=== PATIENT | female | born 1950 | race Caucasian/White ===

== ENCOUNTER 2020-12-22 16:39 | Inpatient (IN) | payer OTHER, SELFPAY ==
[~2020-12-22] VITALS: Ht 147.3 cm; Wt 45.5 kg
[~2020-12-22 16:39] MED LIST: ACEASPCAF PO; ALBU3IS INH; ALBU90OI INH; ALEN70 PO; Entocort EC 3 mg3 MG PO; FLUSAL2505 INH; FLUT1DIS8 INH; GABA300 PO; LEVO750 PO; LEVSOD50 PO; LOVA40; LOVA40 PO; MIRT15 PO; NICO14TP; OMEP20ER PO; POTCHL10ER PO; PRED10 PO; TRAZ50 PO; Ventolin Soln3 ML INH
[2020-12-22 16:56] LABS: Base Excess Venous 0.4 mmol/L; Bicarbonate Venous 23.6 mmol/L (24.0-30.0); PCO2 Venous 40.1 mmHg (38-42); PO2 Venous 31.6 mmHg (38-42); pH Blood Venous 7.41 (7.34-7.37)
[2020-12-22 17:01] LABS: BASOPHILS ABSOLUTE AUTO 0.05 K/mm3 (0.00-0.23); BASOPHILS PERCENT AUTO 1 % (0-2); EOSINOPHILS PERCENT AUTO 0 % (0-6); Hemoglobin 16.2 g/dL (11.5-16.0); IMMATURE GRAN ABSOLUTE AUTO 0.06 K/mm3 (0.00-0.10); IMMATURE GRAN PERCENT AUTO 1 % (0-1); LYMPHOCYTES ABSOLUTE AUTO 1.27 K/mm3 (0.84-5.20); LYMPHOCYTES PERCENT AUTO 15 % (21-46); MONOCYTES ABSOLUTE AUTO 0.66 K/mm3 (0.16-1.47); MONOCYTES PERCENT AUTO 8 % (4-13); Mean Corpuscular HGB 29.6 pg (26.0-34.0); Mean Corpuscular HGB Conc 31.8 g/dL (31.5-36.5); Mean Corpuscular Volume 93 fL (80-100); Mean Platelet Volume 11.3 fL (9.1-12.4); NEUTROPHILS ABSOLUTE AUTO 6.54 K/mm3 (1.96-9.15); NEUTROPHILS PERCENT AUTO 76 % (41-73); Platelet Count 245 K/mm3 (150-400); RDW Coefficient Variation 13.7 % (11.7-14.2); RDW Standard Deviation 47.1 fL (35.1-46.3); Red Blood Cell Count 5.47 M/mm3 (3.80-5.20); White Blood Cell Count 8.58 K/mm3 (4.00-11.30)
[2020-12-22 17:21] LABS: Alanine Aminotransfer (ALT/SGP 27 U/L (12-78); Albumin, Blood 3.5 g/dL (3.4-5.0); Albumin/Globulin Ratio 0.9 (0.8-1.8); Alk Phos 137 U/L (50-136); Anion Gap 9 mmol/L (6-16); Aspartate Aminotrans (AST/SGOT 22 U/L (12-37); Bilirubin, Total 0.7 mg/dL (0.1-1.0); Blood Urea Nitrogen 21 mg/dL (8-24); Bun/Creatinine Ratio 40.3 (12.0-20.0); CO2, Blood 24 mmol/L (21-32); Calcium, Blood 9.7 mg/dL (8.5-10.1); Chloride, Blood 107 mmol/L (98-108); Creatinine, Blood 0.52 mg/dL (0.40-1.00); Globulin, Blood 3.9 g/dL (2.2-4.0); Glomerular Filtration Rate >60 (60-); Glucose, Blood 104 mg/dL (70-99); Sodium, Blood 140 mmol/L (136-145); Total Protein, Blood 7.4 g/dL (6.4-8.2); Troponin I <0.015 ng/mL (0.000-0.040)
[2020-12-22] MEDS ORDERED: PROZAC20 M3 PO (17:26)
[2020-12-22] MEDS ORDERED: SYNTHROID75 MCG PO (17:27)
[2020-12-22] MEDS ORDERED: Lovastatin10 MG PO (17:28)
[2020-12-22 18:23] LABS: Influenza A, PCR NEGATIVE (NEGATIVE); Influenza B, PCR NEGATIVE (NEGATIVE); Resp Syncytial Virus, PCR NEGATIVE (NEGATIVE); SARS-Cov-2 (COVID-19) PCR, MMC NEGATIVE (NEGATIVE)
[2020-12-22 23:24] LABS: CPK Creatine Kinase 75 U/L (26-193); Troponin I <0.015 ng/mL (0.000-0.040)
--- NOTE | 2020-12-23 06:26 | NUR ---
shift summary pt admitted. alert and oriented - able to make needs known. sats >90% on bipap - desats rapidly when bipap taken off. tele nsr. no c/o chest pain. c/o headache x1 - see emar. very sob - prefers to use bedpan. lasix for diuresing. uop 700ml. no bm. no pain elsewhere. call light within reach, bed in lowest position. will continue to monitor.
[2020-12-23 07:12] LABS: BASOPHILS ABSOLUTE AUTO 0.01 K/mm3 (0.00-0.23); BASOPHILS PERCENT AUTO 0 % (0-2); EOSINOPHILS PERCENT AUTO 0 % (0-6); Hematocrit 46.8 % (33.0-51.0); Hemoglobin 14.8 g/dL (11.5-16.0); IMMATURE GRAN ABSOLUTE AUTO 0.01 K/mm3 (0.00-0.10); IMMATURE GRAN PERCENT AUTO 0 % (0-1); LYMPHOCYTES ABSOLUTE AUTO 0.52 K/mm3 (0.84-5.20); LYMPHOCYTES PERCENT AUTO 11 % (21-46); MONOCYTES ABSOLUTE AUTO 0.29 K/mm3 (0.16-1.47); MONOCYTES PERCENT AUTO 6 % (4-13); Mean Corpuscular HGB 29.8 pg (26.0-34.0); Mean Corpuscular HGB Conc 31.6 g/dL (31.5-36.5); Mean Corpuscular Volume 94 fL (80-100); Mean Platelet Volume 11.6 fL (9.1-12.4); NEUTROPHILS ABSOLUTE AUTO 4.12 K/mm3 (1.96-9.15); NEUTROPHILS PERCENT AUTO 83 % (41-73); Platelet Count 218 K/mm3 (150-400); RDW Coefficient Variation 13.7 % (11.7-14.2); RDW Standard Deviation 47.6 fL (35.1-46.3); Red Blood Cell Count 4.96 M/mm3 (3.80-5.20); White Blood Cell Count 4.95 K/mm3 (4.00-11.30)
[2020-12-23 07:33] LABS: Alanine Aminotransfer (ALT/SGP 24 U/L (12-78); Albumin/Globulin Ratio 0.8 (0.8-1.8); Alk Phos 121 U/L (50-136); Anion Gap 8 mmol/L (6-16); Aspartate Aminotrans (AST/SGOT 23 U/L (12-37); Bilirubin, Total 0.5 mg/dL (0.1-1.0); Blood Urea Nitrogen 21 mg/dL (8-24); Bun/Creatinine Ratio 31.4 (12.0-20.0); CO2, Blood 27 mmol/L (21-32); CPK Creatine Kinase 61 U/L (26-193); Calcium, Blood 9.1 mg/dL (8.5-10.1); Chloride, Blood 106 mmol/L (98-108); Creatinine, Blood 0.67 mg/dL (0.40-1.00); Globulin, Blood 3.6 g/dL (2.2-4.0); Glomerular Filtration Rate >60 (60-); Glucose, Blood 109 mg/dL (70-99); Potassium, Blood 4.4 mmol/L (3.5-5.5); Sodium, Blood 141 mmol/L (136-145); Total Protein, Blood 6.6 g/dL (6.4-8.2); Troponin I <0.015 ng/mL (0.000-0.040)
--- NOTE | 2020-12-23 15:33 | NUR ---
echocardiogram complete
[2020-12-23] MEDS ORDERED: HYOS.125 PO (16:03)
[2020-12-23] MEDS ORDERED: LORA10ER PO (16:04)
[2020-12-23] MEDS ORDERED: PREG100 PO (16:05)
[2020-12-23] MEDS ORDERED: PROBIOTIC PO (16:08)
--- NOTE | 2020-12-23 20:11 | NUR ---
SHIFT SUMMARY PT A&Ox4; CALM AND COOPERATIVE CARE. PT RESTING IN BED DURING SHIFT. REPOSITIONED FOR COMFORT. PT REPORT HEADACHE THIS AM, TYLENOL GIVEN WITH NO EFFECT; NOTIFIED DR BLOOM; NEW ORDERS FOR FIORCET, ADMINISTERED WITH POSITIVE RESULTS. PT SOB WITH EXERTION; ON BIPAP 10/5 AT 50-70% FIO2 T/O SHIFT. ATTEMPTED BREAKS FROM BIPAP T/O SHIFT, PT DOES NOT TOLERATE WELL, DESATURATES QUICKLY; BIPAP REPLACED FOR RESCUE. PT DENIES CHEST PAIN, NAUSEA AND DIZZINESS. PT TRANSITIONED TO FULL LIQUID DIET. VSS. NO OTHER ACUTE CHAGNES NOTED. REPORT GIVEN TO ONCOMING RN.
[2020-12-24 04:05] LABS: Base Excess Venous 4.4 mmol/L; Bicarbonate Venous 27.2 mmol/L (24.0-30.0); PCO2 Venous 47.1 mmHg (38-42); PO2 Venous 48.3 mmHg (38-42)
[2020-12-24 04:32] LABS: Anion Gap 7 mmol/L (6-16); Blood Urea Nitrogen 22 mg/dL (8-24); Bun/Creatinine Ratio 40.1 (12.0-20.0); CO2, Blood 28 mmol/L (21-32); Calcium, Blood 8.5 mg/dL (8.5-10.1); Chloride, Blood 107 mmol/L (98-108); Creatinine, Blood 0.55 mg/dL (0.40-1.00); Glomerular Filtration Rate >60 (60-); Glucose, Blood 83 mg/dL (70-99); Potassium, Blood 3.3 mmol/L (3.5-5.5); Sodium, Blood 142 mmol/L (136-145)
--- NOTE | 2020-12-24 05:53 | NUR ---
SHIFT SUMMARY PT RESTED WELL THROUGH EVENING. ALERT AND ORIENTED - ABLE TO MAKE NEEDS KNOWN. TELE NSR. SATS >90% ON BIPAP. PT UNABLE TO MAINTAIN SATS WITHOUT BIPAP. ECHO RESULTED - SEE RESULTS. PT ON FULL LIQUIDS AND DOES WELL FOR QUIT PERIODS OFF BIPAP. VOIDING TO BEDPAN, NO BM. NO C/O PAIN. VSS. CALL LIGHT WITHIN REACH, BED IN LOWEST POSITION. WILL CONTINUE TO MONITOR.
--- NOTE | 2020-12-24 13:32 | NUR ---
PT AGREEABLE TO THIS STUDENT PROVIDING CARE.
[2020-12-24 13:33] LABS: Source, Urine Catheter
[2020-12-24 13:52] LABS: Appearance, Urine Clear (Clear); Bilirubin, Urine Neg (Neg); Blood, Urine Neg (Neg); Color, Urine Yellow (P-Yellow); Glucose Qualitative, Urine Neg (Neg); Ketones, Urine Neg (Neg); Leukocyte Esterase, Urine Neg (Neg); Nitrite, Urine Neg (Neg); Protein, Urine Neg (Neg); Urobilinogen, Urine NORM (Normal); pH, Urine 6.5 (5.0-8.0)
--- NOTE | 2020-12-24 19:08 | NUR ---
SHIFT SUMMARY PT A&Ox4; CALM AND COOPERATIVE WITH CARE. PT RESTING IN BED, REPOSITIONED TO Q2. PT DENIES PAIN, CHEST PAIN, NAUSEA AND DIZZINESS. PT SOB WITH EXERTION; PT ON BIPAP FOR MAJOIRTY OF SHIFT, PT TOLERATING SHORT BREAKS FOR MEALS ON 15L O2 VIA HIGHFLOW NC. PT STARTED ON COREG THIS AFTERNOON; BP SOFT THIS EVENING, NOTIFIED DR BLOOM; NEW ORDERS ENTERED. OTHER VSS. NO OTHER ACUTE CHANGES NOTED DURING SHIFT. REPORT GIVEN TO ONCOMING RN.
[2020-12-25 04:58] LABS: Anion Gap 2 mmol/L (6-16); Blood Urea Nitrogen 15 mg/dL (8-24); Bun/Creatinine Ratio 26.5 (12.0-20.0); CO2, Blood 37 mmol/L (21-32); Calcium, Blood 8.2 mg/dL (8.5-10.1); Chloride, Blood 102 mmol/L (98-108); Creatinine, Blood 0.57 mg/dL (0.40-1.00); Glomerular Filtration Rate >60 (60-); Glucose, Blood 94 mg/dL (70-99); Potassium, Blood 3.3 mmol/L (3.5-5.5); Sodium, Blood 141 mmol/L (136-145)
--- NOTE | 2020-12-25 05:25 | NUR ---
SHIFT SUMMARY PT RESTED WELL THROUGH NIGHT. ALERT AND ORIENTED - ABLE TO MAKE NEEDS KNOWN. TELE - NSR. PT WEARS BIPAP MAJORITY OF TIME, CAN ONLY TOLERATE BEING OFF BIPAP FOR ABOUT AN HOUR. PT TENDS TO DESAT TO HIGH 70'S-LOW 80'S WHEN OFF TOO LONG WEARING 15LNC HIFLO. CORTÉS PLACED TO HELP MEASURE ACCURATE I/O - SEE FLOWCHART FOR UOP. 2 BM'S. C/O HEADACHE FROM BIPAP - SEE EMAR. NO SKIN ISSUES. VSS. MORNING LABS SHOW POTASSIUM 3.3 - WILL NOTIFY MD. CALL LIGHT WITHIN REACH, BED IN LOWEST POSITION. WILL CONTINUE TO MONITOR.
--- NOTE | 2020-12-25 08:24 | NUR ---
pt laying in bed on bipap, asking to have it off, this was removed and she was placed on 15 liters high flow cannula, she is maintaining sats at 92%, denies complaints of pain, states she slept well last night, lungs are very dim t/o, resp even and unlabored at rest, no cough noted, hrr, running st per monitor, see strip, no edema noted, she reports she was swollen but has gone down, ppp+2, cap refill <3sec, vs stable, afebrile, iv site is clear and patent, btx4, abd flat soft nontender, martinez cath draining clear yellow urine, skin is c/w/d, frail, maew, activity intolerance due to resp. cecil, call light in reach.
--- NOTE | 2020-12-25 19:14 | NUR ---
PT HAS BEEN ABLE TO BE OFF BIPAP ON HIGH FLOW N/C AT 15LITERS FOR 1/2HR AT A TIME, DID DROP TO THE 70'S AT ONE TIME, RECOVERED WITH BIPAP. HAD A H/A THIS AFTERNOON. NO FURTHER CHANGES THIS SHIFT. CALL LIGHT IN REACH.
--- NOTE | 2020-12-26 04:40 | NUR ---
AUTOMOTIVE PARTS SALESPERSON SUMMARY THE PT REMAINED ON BIPAP SHE DESTURATED INTO THE LOW 80'S WHEN BIPAP WAS OFF. O2 SATS 90-93 ON BIPAP 65% O2. TELE NSR IN THE 90'S WITH PVC'S. PT DENIED ANY PAIN OR NAUSEA THIS SHIFT. WCTM
[2020-12-26 05:50] LABS: Anion Gap 5 mmol/L (6-16); Blood Urea Nitrogen 13 mg/dL (8-24); Bun/Creatinine Ratio 26.9 (12.0-20.0); CO2, Blood 34 mmol/L (21-32); Chloride, Blood 101 mmol/L (98-108); Creatinine, Blood 0.48 mg/dL (0.40-1.00); Glomerular Filtration Rate >60 (60-); Glucose, Blood 89 mg/dL (70-99); Potassium, Blood 3.2 mmol/L (3.5-5.5); Sodium, Blood 140 mmol/L (136-145)
--- NOTE | 2020-12-26 08:00 | NUR ---
pt laying in bed with n/c in place at 15 liters, taking a break from bipap, sats are above 90%, states she slept well last night, denies pain, lungs are very dim t/o, has occ nonproductive cough, states she is feeling ok, hrr, tele in place running sr with pvc's, no to trace edema noted, ppp+1, cap refill <3sec, vs stable, afebrile, iv site is clear and patent, btx4, abd flat soft nontender, voids without diff, skin c/w/d, frail, maew, very weak, activity intolerance due to breathing, cecil, call light in reach.
--- NOTE | 2020-12-26 12:21 | NUR ---
pt off bipap for lunch, Dr. Dyer was in to see her, labs ordered, no further changes. call light in reach.
--- NOTE | 2020-12-26 18:54 | NUR ---
pt watching tv, on n/c, doing well, states her bottom is hurting from sitting on it too long. will check it, ate better this evening. call light in reach.
--- NOTE | 2020-12-26 19:25 | NUR ---
ASSUMED CARE RECEIVED BEDSIDE REPORT FROM DANK WEEMS RN; PT A&O X 4; DENIES CHEST PAIN; VSS; O2 SATS >93 ON BIPAP; RT TITRATING; CURRENTLY WATCHING TV W/ NO DISTRESS NOTED; CALL LIGHT IN REACH; BED IN LOWEST POSITION.
--- NOTE | 2020-12-27 04:48 | NUR ---
SHIFT SUMMARY PT A&O X 4; VSS; DENIES CHEST PAIN; SR - ST NOTED ON TELE W/ HR 90-110; O2 SATS >93 ON 15L HIGH FLOW OR BIPAP 10/5 60% FIO2 TITRATED PER RT; CORTÉS PATENT & DRAINING YELLOW; EGG CRATE PLACED ON MATTRESS FOR COMFORT AND PILLOWS UNDER HIPS TO RELIEVE PRESSURE; TYLENOL ADMINISTEERED FOR HEADACHE; NO ACUTE CHANGES THIS SHIFT; CALL LIGHT IN REACH; BED IN LOWEST POSITION; WILL CONTINUE TO MONITOR CLOSELY UNTIL HAND OFF TO DAY SHIFT RN.
[2020-12-27 05:02] LABS: Anion Gap 6 mmol/L (6-16); Blood Urea Nitrogen 15 mg/dL (8-24); Bun/Creatinine Ratio 32.9 (12.0-20.0); CO2, Blood 35 mmol/L (21-32); Calcium, Blood 8.1 mg/dL (8.5-10.1); Chloride, Blood 99 mmol/L (98-108); Creatinine, Blood 0.46 mg/dL (0.40-1.00); Glomerular Filtration Rate >60 (60-); Glucose, Blood 124 mg/dL (70-99); Potassium, Blood 3.3 mmol/L (3.5-5.5); Sodium, Blood 140 mmol/L (136-145)
--- NOTE | 2020-12-27 18:46 | NUR ---
SHIFT SUMMARY PT A&Ox4; CALM AND COOPERATIVE WITH CARE. PT REPORTS HEADACHE THIS AM; MEDICATED PER EMAR WITH POSITIVE RESULTS. PT RESTING IN BED DURING SHIFT. Q2 REPOSITIONED FOR COMFORT. PT DENIES SOB, NAUSEA, AND DIZZINESS. PT ON BIPAP FOR MAJOIRTY OF SHIFT. THIS AM PT WAS OFF BIPAP FOR APPROX AN HOUR, FOR REMAINDER OF DAY PT OFF A COUPLE TIMES AND DESATURATED QUICKLY. PT HAS CORTÉS PATENT AND DRAINING, PLAN TO REMOVE CORTÉS CATHETER. VSS. NO OTHER ACUTE CHANGES NOTED. WILL CONTINUE TO MONITOR UNITL REPORT GIVEN TO ONCOMING RN.
--- NOTE | 2020-12-27 19:25 | NUR ---
ASSUMED CARE RECEIVED BEDSIDE REPORT FROM JSOLYN OZUNA; PT A&O X 4; VSS; DENIES CHEST PAIN; O2 SATS >93 ON BIPAP; CORTÉS IN PLACE, PATENT & DRAINING KENZIE; WATCHING TV W/ NO DISTRESS NOTED; CALL LIGHT IN REACH; BED IN LOWEST POSITION.
[2020-12-28 04:03] LABS: Anion Gap 4 mmol/L (6-16); Blood Urea Nitrogen 16 mg/dL (8-24); CO2, Blood 39 mmol/L (21-32); Calcium, Blood 8.7 mg/dL (8.5-10.1); Chloride, Blood 99 mmol/L (98-108); Creatinine, Blood 0.46 mg/dL (0.40-1.00); Glomerular Filtration Rate >60 (60-); Glucose, Blood 99 mg/dL (70-99); Potassium, Blood 3.7 mmol/L (3.5-5.5); Sodium, Blood 142 mmol/L (136-145)
--- NOTE | 2020-12-28 06:20 | NUR ---
SHIFT SUMMARY PT A&O X 4; VSS; DENIES CHEST PAIN; NSR NOTED ON TELE W/ HR 90'S; O2 SATS >93 ON 15L HIGH FLOW OR BIPAP 10/5 65% FIO2; PT ONLY TOLERATES BEING OFF BIPAP APPROXIMATELY 30 MINUTES; SHALLOW BREATHING W/ DIM LUNG SOUNDS NOTED T/O; MOO LIN'[place] THIS AM, ATTENDS IN PLACE FOR BACK UP; MEPILEX PLACED ON COCCYX FOR PROTECTION; Q2 TURNS PROVIDED WHEN PT ALLOWED; PT DENIED ORAL CARE, EDUCATION PROVIDED; CALL LIGHT IN REACH; BED IN LOWEST POSITION; WILL CONTINUE TO MONITOR CLOSELY UNTIL HAND OFF TO DAY SHIFT RN.
--- NOTE | 2020-12-28 18:15 | NUR ---
SHIFT SUMMARY PT A&Ox4; CALM AND COOPERATIVE WITH CARE. PT RESTING IN BED DURING SHIFT. REPOSITIONED Q2 FOR COMFORT. PT REPORTS HEADACHE, MEDICATED PER EMAR WITH POSITIVE RESULTS. PT DENIES SOB, INCREASED RESP RAT AND EFFORT WITH EXERTION; PT ON BIPAP FOR MAJOIRTY OF SHIFT, UNABLE TO TAKE BREAKS ON HF NC AT 15L; THIS EVENING TRANSITIONED PT TO AIRVO; APPEARS TO BE TOLERARTING WELL; PT ENCOURAGED TO USE IS WHILE ON AIRVO. PT DENIES NAUSEA AND DIZZINESS. DR ROGERS IN TO SEE PT THIS AFTERNOON. VSS. NO OTHER ACUTE CHANGES NOTED DURING SHIFT. WILL CONTINUE TO MONITOR UNITL REPORT GIVEN TO ONCOMING RN.
--- NOTE | 2020-12-28 19:20 | NUR ---
ASSUMED CARE RECEIVED BEDSIDE REPORT FROM SULMA RN; PT A&O X 4; VSS; DENIES CHEST PAIN; O2 SATS >93 ON AIRVO, TITRATED PER RT; PT STATES SHE HAS APPRECIATED THE AIRVO TODAY; PT WATCHING TV W/ NO DISTRESS NOTED; CALL LIGHT IN REACH; BED IN LOWEST POSITION.
--- NOTE | 2020-12-29 06:21 | NUR ---
SHIFT SUMMARY PT A&O X 4; CALLS APPROPRIATELY AND MAKES NEEDS KNOWN, PLEASANT & MORE CONVERSIVE THIS SHIFT; VSS; DENIES CHEST PAIN; NSR NOTED ON TELE, W/ HR IN 90'S; O2 SATS >93 ON AIRVO OR BIPAP W/ FIO2 70%; PO FLUIDS ENCOURAGED; BEDPAN FOR VOIDS W/ ATTENDS IN PLACE FOR BACK UP; Q2 TURNS PROVIDED WHEN PT ALLOWS; REFUSED ORAL CARE; REFUSED TO SOAK DENTURES WHICH ARE SITTING ON TRAY TABLE; REFUSED OFFER TO GET UP INTO A RECLINER; PT SLEPT SEVERAL HOURS THIS SHIFT; NO ACUTE CHANGES; CALL LIGHT IN REACH; BED IN LOWEST POSITION; WILL CONTINUE TO MONITOR CLOSELY UNTIL HAND OFF TO DAY SHIFT RN.
--- NOTE | 2020-12-29 12:28 | NUR ---
PERMISSION FOR CARE I, ALBARO SANON, RECEIVED PERMISSION FROM THIS PATIENT TO PROVIDE CARE FOR HER DURING A PALLIATIVE CARE CONSULT ON 12/29/2020/
--- NOTE | 2020-12-29 17:42 | NUR ---
SHIFT SUMMARY PT ALERT AND ORIENTED. VS STABLE. O2 SATS HAVE REMAINED ABOVE 90%. PT ON BIPAP ALMOST ALL OF SHIFT. PT ABLE TO TOLERATE HOUR LONG BREAK WITH EACH MEAL WHEN PLACED ON AIRVO. PT DENIES ANY PAIN. PT ABLE TO TRANSFER TO RECLINER WITH 1 ASSIST. WILL CONTINUE TO MONITOR AND REPORT TO ONCOMING RN. CALL LIGHT IN REACH.
--- NOTE | 2020-12-29 19:54 | NUR ---
Met with pt to review her needs and symptoms. Pt staes she has had a headache since wearing th bipapa. She had had some decline in her swallow feels like she has to gulp. She feels her airhunger is less today. She does feel bloated and feels like she has been having some abdominal pain on right flank. She expressed that she has hd some rcent profound grief that has made her feel worse. She was to [facility] in september to cook thanks giving dinner she could not get off the couch. He family stepped in but she was very distraught. The day before she came to the hospital her fifteen year old dog . She feels she could not gireve for him because if she started crying she became to short of breath. Spent the rest of the visit haveing some theraputic tiem with her to express her fear and loss. will have chaplian visit.
--- NOTE | 2020-12-29 20:56 | NUR ---
ASSUMED CARE FROM DAY SHIFT RN PT WAS AWAKE AND ON BIPAP DURING SHIFT CHANGE. VS STABLE WITH EXCEPTION OF SAT; PT ON BIPAP TO MAINTAIN SAT ABOVE 89%. PT IS REPORTED HAVING AN EF OF 15% AND PULMONARY HYPERTENSION BASED ON HER ECHO. PT IS ON A FULL LIQUID DIET AND IS TOLERATING IT WELL WITH NO SIGNS OF ASPIRATION PER DAY SHIFT REPORT. PT WAS ATTEMPTING TO USE THE BSC BUT WAS QUICKLY DESATURATING DESPITE THE BIPAP. PT WAS TOLD THAT IT MAY BE BEST TO GO BACK TO THE BED PICHARDO FOR TONIGHT AND MAYBE TOMORROW SHE COULD TRY THE BSC AGAIN DEPENDING ON O2 NEEDS; PT UNDERSTOOD AND GAVE VERBAL AGREEMENT. PT IN BED RESTING AT THIS TIME WAITING FOR EVENING MEDS.
--- NOTE | 2020-12-30 04:39 | NUR ---
SHIFT SUMMARY PT HAS SLEPT VERY LITTLE TONIGHT. PT HAS BEEN USING THE BEDPAN WITH HELP FROM THE HUMAN RESOURCE MANAGER PRATEEK. VS STABLE. PT USING BIPAP AND AIRVO FOR SMALL BREAKS FROM THE BIPAP TO EAT OR DRINK OR TAKE MEDICATIONS. PT WILL QUICKLY DESAT WHEN TAKEN OFF ANY SUPPLEMENTAL OXYGEN; I.E. SWITCHING FROM BIPAP TO AIRVO. PT REPORTED A HEADACHE AT THE START OF THE SHIFT WHICH WAS RESOLVED PER EMAR MED ORDER. PT HAS BEEN RESTING IN BED ON AND OFF.
--- NOTE | 2020-12-30 18:48 | NUR ---
PT SUMMARY: ATTEMPTED TO SWITCH AIRVO TO HIFLO NC AT 15L PT WAS UNABLE TO TOLERATE PT DESATS TO LOW 80'S PT PLACED BACK ON AIRVO, PT STILL GET SOB WITH MIN.EXERTION DESATS TO 87% AND RECOVERS BACK QUICK WITH BIPAP 55% FIO2 SETTINGS. PT STAYED IN BED MOST OF THE SHIFT USES BED PICHARDO FOR TOILETING, PT IS ABLE TO TURN AND MOVE SELF IN BED. THE REST OF THE VITALS STABLE, AFEBRILE. PT REMAINS ON DIURETICS AND STEROIDS, PT RECEIVED BED BATH FOR THE SHIFT. REMAINS ON FULL LIQUID DIET, FAIR APPETITE. CALLS APPROPRIATELY ABLE TO MAKE NEEDS KNOWN WILL MONITOR UNTIL END OF SHIFT
--- NOTE | 2020-12-31 06:31 | NUR ---
SHIFT SUMMARY PT PLEASANT, ALERT AND ORIENTED. PT HAS HAD NO ACUTE CHANGES. PT HAS BEEN ALTERNATING BETWEEN AIRVO (54LPM, 72FIO2) AND BIPAP WITH SATS OF >92%. SR WITH PAC'S IN 90'S. PT IS BEDREST, USES BEDPAN AND HAS AN ATTENDS IN PLACE. PT IS ABLE TO TURN SELF IN BED. REMAINS IN FULL LIQUID DIET.
[2020-12-31 09:07] LABS: BASOPHILS ABSOLUTE AUTO 0.01 K/mm3 (0.00-0.23); BASOPHILS PERCENT AUTO 0 % (0-2); EOSINOPHILS PERCENT AUTO 0 % (0-6); Hematocrit 46.7 % (33.0-51.0); IMMATURE GRAN ABSOLUTE AUTO 0.13 K/mm3 (0.00-0.10); IMMATURE GRAN PERCENT AUTO 1 % (0-1); LYMPHOCYTES ABSOLUTE AUTO 0.51 K/mm3 (0.84-5.20); LYMPHOCYTES PERCENT AUTO 5 % (21-46); MONOCYTES ABSOLUTE AUTO 0.33 K/mm3 (0.16-1.47); MONOCYTES PERCENT AUTO 3 % (4-13); Mean Corpuscular HGB 29.9 pg (26.0-34.0); Mean Corpuscular HGB Conc 32.1 g/dL (31.5-36.5); Mean Corpuscular Volume 93 fL (80-100); Mean Platelet Volume 12.6 fL (9.1-12.4); NEUTROPHILS PERCENT AUTO 91 % (41-73); Platelet Count 244 K/mm3 (150-400); RDW Coefficient Variation 13.9 % (11.7-14.2); RDW Standard Deviation 47.1 fL (35.1-46.3); Red Blood Cell Count 5.02 M/mm3 (3.80-5.20); White Blood Cell Count 10.68 K/mm3 (4.00-11.30)
[2020-12-31 09:26] LABS: Albumin, Blood 3.3 g/dL (3.4-5.0); Anion Gap 7 mmol/L (6-16); Blood Urea Nitrogen 17 mg/dL (8-24); Bun/Creatinine Ratio 45.7 (12.0-20.0); CO2, Blood 33 mmol/L (21-32); Calcium, Blood 9.3 mg/dL (8.5-10.1); Chloride, Blood 98 mmol/L (98-108); Creatinine, Blood 0.37 mg/dL (0.40-1.00); Glomerular Filtration Rate >60 (60-); Glucose, Blood 147 mg/dL (70-99); Phosphorus, Blood 3.5 mg/dL (2.5-4.9); Potassium, Blood 3.5 mmol/L (3.5-5.5); Sodium, Blood 138 mmol/L (136-145)
--- NOTE | 2020-12-31 13:49 | NUR ---
Palliative Care visit - Case conferenced earlier with RN, and Cardiopulmonary rehab earlier today. EMR reviewed. Pt's severe PULM HTN may exclude her from being a Pulm or Cardiac rehab candidate. RN reports pt is not tolerating NC and requires either Bpap or airvo HF O2 delivery. RN reports that pt desaturates even with bedpan use or bed mobility. Reviewed with Dr Suero this am. VO obtained & entered for PT/OT starting tomorrow for energy conserv. breath technique & increasing activity tolerance. Pt had just finished her lunch when I arrived. She ate most of what was on her tray. Currently has airvo on and had bipap while sleeping earlier when I came by. Pt appears extremely dyspnic and frail. She is agreeable to a visit. She spoke about her difficulty allowing others to do things for her, as she has always been fiercely independent. Supportive listening and encouragement given. She reports her is also her best friend and just wants her home. He is able and willing to assist her in any way possible, per pt. Pt has a Pulmonology consult pending per hospitalist. Pt's CHF/cardiac status and severe COPD are both contributing to her current hypoxia and severe dyspnea per notes. Pt states her breathing is "better today" and "yesterday was really bad". She is willing to attempt PT/OT for increased activity tolerance and pacing activity training. Discussed orders with PT coordinator for start of services tomorrow. Planned with pt to visit again tomorrow. She expressed appreciation of the time spent talking and planned return visit tomorrow.
--- NOTE | 2020-12-31 18:23 | NUR ---
PT SUMMARY: PT DESATS TO LOW 80'S WITH MINIMAL EXERTION ON AIRVO 55L PT HAS TO HAVE BIPAP MASK ON TO RECOVER, DR ALVAREZ IS AWARE, REPEAT CXR ORDERES THUS PULMONARY CONSULTED, DR FARR IN PT'S ROOM AT THIS TIME DISCUSSING PLAN WITH THE PT. VITALS HRR ST 110'S, BP SYSTOLIC 120-140'S, AFEBRILE. PALLIATIVE CARE DISCUSSED TO PT AND ABOUT PT'S CURRENT CONDITION, PT/OT ORDERED TO SEE IF PT TOLERATES/IMPROVE/DECLINE. TO POSSIBLY CONSIDER HOSPICE IF PT DECLINES DUE TO SEVERE PULMONARY HTN AND RESPI ISSUES. PT STAYED IN BED ALL SHIFT, USES BED PICHARDO FOR TOILETING MINIMAL ASSIST WHEN ROLLING AND TURNING IN BED, ABLE TO MAKE NEEDS KNOWN, CALLS APPROPRIATELY WILL MONITOR
--- NOTE | 2020-12-31 19:20 | NUR ---
ASSUMED CARE RECEIVED BEDSIDE REPORT FROM STACIA RN; PT A&O; DENIES CHEST PAIN; VSS; RECIEVING BREATHING TX FROM RT; O2 SATS >93 ON BIPAP; CURRENTLY WATCING TV; NO DISTRESS NOTED; CALL LIGHT IN REACH; BED IN LOWEST POSITION.
--- NOTE | 2021-01-01 06:23 | NUR ---
SHIFT SUMMARY PT A&O X 4; DENIES CHEST PAIN; VSS; O2 SATS >93 ON BIPAP, TITRATED PER RT 10/6 FIO2 65%; Q2 TURNS PROVIDED; PARTICIPATES W/ TURNS AND BEDPAN; SLEPT SEVERAL HOURS IN BETWEEN INTERVENTIONS; PE STUDY THIS AM; NO ACUTE CHANGES; CALL LIGHT IN REACH; BED IN LOWEST POSITION; WILL CONTINUE TO MONITOR CLOSELY UNTIL HAND OFF TO DAY SHIFT RN.
--- NOTE | 2021-01-01 10:02 | NUR ---
LTD ECHO/BUBBLE STUDY COMPLETED
--- NOTE | 2021-01-01 12:57 | NUR ---
Spiritual care visit conducted. Patient is sitting up in bed and alert. Patient tells me that she is waiting to hear about some tests results which she says is stressful for her. Patient talks about her peace about dying and her concerns about suffering. She shares about her Shinto and Buddhism background and her 's Denominational background. She explains that she doesn't really hold on to the doctrine debates about what group is "right" but quietly has her personal connection with God. I normalize patient's stress in waiting, reinforce her positive outlook and provide therapeutic listening and prayer. Patient responds well and shows signs of reduced stress. I will continue to remain available to patient and family.
--- NOTE | 2021-01-01 14:00 | NUR ---
ASSISTED PATIENT OFF BEDPAN. SHE WAS WEARING THE AIRVO. PATIENT'S SPO2 DECREASED TO MID 80'S. PLACED PATIENT ON BIPAP 10/6 FIO2 75%. HAD TO INCREASE FIO2 TO 85% FOR PATIENT'S SPO2 TO RECOVER INTO THE 90'S. FIO2 DECREASED BACK DOWN TO 75%. CALL LIGHT IN REACH. BED ALARM ON. PATIENT CONTINUES ON BIPAP.
--- NOTE | 2021-01-01 14:24 | NUR ---
Supportive visit made after review of EMR, Dr and PT progress notes. Pt has had a busy day with PT norbert and multiple Dr/staff visits. She is receptive to visit and expressed desire to work with drs and PT, hoping for improvement. She expressed some anxiety of going home and she and "not being able to handle things". She states her gets very anxious when she is struggling with her breathing. She reported on her understanding of what she is hearing from her drs and also that she is awaiting further testing results. She denies pain and states her primary c/o is fatigue. Room set up for her to have some down/rest time. Planned to stop in tomorrow again. Reported to RN on my visit.
--- NOTE | 2021-01-01 17:00 | NUR ---
SPOKE WITH DR. FARR REGARDING PATIENT'S PLAN OF CARE. NOTIFIED HIM PATIENT WAS ABLE TO TOLERATE PHYSICAL THERAPY THIS AM BUT HAS BEEN MORE TIRED THIS AFTERNOON AND HAS BEEN REQUIRING BIPAP WITH INCREASED FIO2 FOR RECOVERY WHEN EXERTING HERSELF WHILE USING BEDPAN. HE WAS ABLE TO TITRATE FIO2 DOWN TO 60% WHILE PATIENT WAS RESTING IN BED. STATES HE BELIEVES THIS IS PATIENT'S BASELINE RESPIRATORY THAKKAR AND THAT IT MAY BE EXACERBATED BY HER HEART FAILURE. NOTIFIED HIM THAT RESPIRATORY THERAPY WAS CONCERNED THAT PATIENT WAS "ACTING LIKE SHE WAS COVID POSITIVE", DR. FARR STATES THAT SHE IS NOT AND THAT SHE DOES NOT NEED A REPEAT COVID TEST AT THIS TIME.
--- NOTE | 2021-01-01 19:30 | NUR ---
ASSUMED CARE RECEIVED BEDSIDE REPORT FROM SAMPSONRN; PT A&O X 4; VSS; DENIES CHEST PAIN; O2 SATS >93 ON BIPAP 10/6 65% FIO2; PT STATES SHE IS TIRED AFTER TODAYS EVENTS OF IMAGING AND PHYSICAL THERAPY; CURRENTLY DENIES NEEDS; PO FLUIDS ENCOURAGED; CALL LIGHT IN REACH; BED IN LOWEST POSITION.
--- NOTE | 2021-01-01 19:40 | NUR ---
SHIFT SUMMARY: PATIENT A/OX3. TYLENOL GIVEN FOR HEADACHE PAIN WITH GOOD EFFECT, BROUGHT PAIN DOWN FROM 8/10 TO 2/10. WEARING AIRVO AT 85% WHILE OFF BIPAP. TOLERATED PHYSICAL THERAPY THIS AM. HAS BEEN TIRED THIS AFTERNOON, STATES THAT SHE HAD "TOO MUCH ACTIVITY" THIS MORNING (WAS DOWN TO IMAGING, HAD PHYSICAL THERAPY, AND ALSO HAD ECHO). THIS AFTERNOON SHE REQUIRED BIPAP FOR RECOVERY 3X AFTER USING THE BEDPAN. CURRENT BIPAP SETTINGS ARE 10/6 FIO2 65%. REPORT GIVEN TO ONCOMING RN.
--- NOTE | 2021-01-02 06:57 | NUR ---
SHIFT SUMMARY PT A&O X 4; VSS; DENIES CHEST PAIN; NSR NOTED ON TELE W/ HR 98; O2 SATS >93 ON BIPAP FOR DURATION OF SHIFT, 10/6 FIO2 65%; PT SLEPT SEVERAL HOURS IN BETWEEN INTERVENTIONS; CALL LIGHT IN REACH; BED IN LOWEST POSITION; WILL CONTINUE TO MONITOR CLOSELY UNTIL HAND OFF TO DAY SHIFT RN.
--- NOTE | 2021-01-02 12:49 | NUR ---
PAL CARE VISIT AND CASE CONFERENCE NOTES - Update and case conf with hemodialysis charge nurse early this am. Jean Paul called to get update, discuss what he understood from discussion with Dr Edwards yesterday pm and prognosis per drs. and I had long conversation. Much time spent listening and he echos and confirms pt's wishes as I understood them in my conversations with her. Planned with to meet with him and Kimberlee, when he comes to visit this afternoon. has been afraid to discuss goals of care, pt's wishes, and to ask questions of drs in front of Kimberlee. I also sense that Kimberlee has been protective of her 's feelings and anxiety related to her condition. I updated nursing and hospitalist on planned family meeting this afternoon. Kimberlee and cared for her mother in their home with hospice support several years ago. They are familiar with hospice services and care. Currently, pt's O2 needs are too high to provide in a home setting and she is bipap dependent currently. Both pt and spouse seem to have good insight and awareness of what this means for her and verbalizing understanding of "her new baseline". They are just having difficulty talking to each other about it. is supportive of any goal of care Kimberlee would like. He is appropriately tearful in anticipating what is ahead for Kimberlee and also the loss of her. Updated Dr on my conversation with and plan. Brief visit to pt to discuss meeting later today with too. She was agreeable. She appears profoundly fatigued and SOB at rest. RT in room states PT just in and pt getting ready to rest after busy am. Bipap in place.
--- NOTE | 2021-01-02 16:07 | NUR ---
[facility] Care visit - Conferenced with pt and her as planned. Pt reiterates her desire for DNR and importance of quality of life to her. She is hopeful that her O2 needs can be decreased and supported at home. She has an O2 concentrator in the home that can deliver 10L/min per NC. Currently pt is airvo and bipap dependent. We discussed benefit vs burden of treatments offered. At this time pt does not want to transition to comfort care, "I am not ready to throw in the towel yet". She and her agree that they would like Hospice support when she leaves the hospital. She verbalizes understanding that current medical treatment may not be able to get her improved enough to be managed at home on O2 via nasal canula. We agreed we would revisit goals of care and her wishes again if she declines or does not improve over the next few days. supportive and willing to give his input. It was a very open and honest conversation between the two of them with their questions re: logistics of care at home and options answered by me. Pt cont to appear profoundly fatigued and sl depressed. She expresses concern and anxiety for how this is affecting her and he expresses the same. Pt has mckeon/circumoral cyanosis and is very dyspnic with brief sentences. Pt had been on [facility] and they request [facility] if d/c home possible. Update given to pt's nurses, Dr Bermudez and VM left for [facility] hospital account liaison, Cindy.
--- NOTE | 2021-01-02 18:41 | NUR ---
SHIFT SUMMARY: PT ALERT AND ORIENTED X4. ON ARIVO AT 90% 55LO2 WHEN EATING AND TAKING PILLS. PT MOSTLY ON BIPAP TODAY AT 10/6 AND 70% O2 SATING AT 92-94%. WHEN USING BEDPAN OR ADJUSTING IN BED PATIENT DESATS TO 88%. TELE SHOWING SINUS RHYTHM. DENIES CHEST PAIN/OVERALL PAIN. NEURO WNL. WEAKNESS WHEN MOVING IN BED. USING BEDPAN AND CALLING APPROPRIATLY. RIGHT AC IV PLACED TODAY, SALINE LOCKED AND FLUSHING WELL. PT EATING WELL. VITAL SIGNS STABLE. NO ACUTE CHANGES. IN TO SEE PT THIS AFTERNOON WITH PALLIATIVE CARE. DISCUSSION ABOUT POSSIBLE GOING HOME WIT HOSPICE OCCURED. WILL CONTINUE TO MONITOR AND REPORT OFF.
[2021-01-03 04:47] LABS: Albumin, Blood 3.2 g/dL (3.4-5.0); Anion Gap 5 mmol/L (6-16); Blood Urea Nitrogen 20 mg/dL (8-24); Bun/Creatinine Ratio 57.6 (12.0-20.0); CO2, Blood 34 mmol/L (21-32); Calcium, Blood 9.4 mg/dL (8.5-10.1); Chloride, Blood 96 mmol/L (98-108); Creatinine, Blood 0.35 mg/dL (0.40-1.00); Glomerular Filtration Rate >60 (60-); Glucose, Blood 127 mg/dL (70-99); Potassium, Blood 5.9 mmol/L (3.5-5.5); Sodium, Blood 135 mmol/L (136-145)
[2021-01-03 04:53] LABS: PCO2 Arterial 50.7 mmHg (35-45); PO2 Arterial 68.6 mmHg (80-100); pH Blood Arterial 7.49 (7.35-7.45)
--- NOTE | 2021-01-03 04:53 | NUR ---
SHIFT SUMMARY NO ACUTE CHANGES THIS SHIFT. VSS. PT AXO. IN SR/PVC. ON EITHER BIPAP 08/12 70-80% OR AIRVO 55L 90%. LUNGS CLEAR/DIM. PT USED BEDPAN THIS SHIFT WITH SEVERE DEATURATION INTO 70'S WHILE ON AIRVO, QUICKLY RECOVERED WITH BIPAP. PT BEING TURNED BY STAFF BUT DOES WELL AT POSITIONING HERSELF WELL. PT DENYING PAIN AND DENIES SOB THIS SHIFT. TOLERATING BIPAP WELL. BED ALARM IN PLACE. WILL CONTINUE TO MONITOR UNTIUL SHIFT CHANGE.
--- NOTE | 2021-01-03 18:00 | NUR ---
SHIFT SUMMARY: PT ALERT AND ORIENTED X4. TELE SHOWING SINUS RHYTHM. DENIES ANY CHEST PAIN. USING BIPAP AT 10/6 80% AND AIRVO AT 55L AND 80% THROUGHOUT THE DAY WITH O2 SATS AT 92-93%. VITAL SIGNS STABLE. NO ACUTE CHANGES. IN TO SEE PATIENT HIS AFTERNOON. EATING WELL. CALLING APPROPRIATLY. USING BEDPAN AND UP TO BEDSIDE COMMODE ONCE THIS SHIFT. PT STATES THAT THIS HER GOAL "TO USE BEDSIDE COMMODE". ABLE TO USE BEDSIDE COMMODE WITH BIPAP AND 2 PERSON ASSIST. MEDICATED ONCE FOR HEADACHE WITH TYLENOL. PT ABLE TO TURN AND MOVE AROUND IN BED BUT DESATS QUICKLY. WILL CONTINUE TO MONITOR AND REPORT OFF.
--- NOTE | 2021-01-04 05:24 | NUR ---
SHIFT SUMMARY NO ACUTE CHANGES THIS SHIFT. PT REMAINS AXO, IN SR WITH PVC'S. ROTATING BETWEEN BIPAP 10/6 80% / AIRVO 55L 80% WHILE AWAKE & CPAP [id number] WHILE ASLEEP. PT DESATS QUICKLY WITH ANY EXERTION ON AIRVO AND NEEES BIPAP TO CATCH UP. HAIR SHAMPOOED AND WASHED THIS SHIFT. PT THANKFUL FOR THIS. OUTSIDE OF RESPIRATORY EQUIPMENT, VSS. PT SLEPT FOR MOST OF SHIFT. WILL CONTINUE TO MONITOR UNTIL SHIFT CHANGE.
--- NOTE | 2021-01-04 11:16 | NUR ---
UPDATE: MEPILEX IN PLACE ON COCCYX REDNESS AND PEA SIZED PRESSURE ULCER NOTED. Q2 TURNING EVERY 2 HOURS MAX. GENERALLY 30-1 HOUR WE ARE BOOSTING AND ADJUSTING PILLOWS UNDER HIPS TO REDISTRIBUTE PRESSURE. EXTREMITIES ELEVATED ON PILLOWS WELL. WILL CONTINUE TO REPOSITION AND MONITOR SITE.
--- NOTE | 2021-01-04 18:10 | NUR ---
SHIFT SUMMARY: PT ALERT AND ORIENTED X4. TELLING ME STORIES ABOUT HER AND PAST DOG. SEEMS VERY BRIGHT AND HAPPY COMPARED TO THE LAST TWO SHIFTS. WEARING CPAP AT 8 AND 80% AND AIRVO AT 55L AND 83% ON AND OFF THROUGHOUT THE SHIFT. ABLE TO TOLERATE AIRVO ABOUT 1.5 HOURS SURROUNDING MEAL TIMES AND WHEN VISITING WITH . TELE SHOWING SR/ST. DENIES CHEST PAIN. COMPLAINED OF HEADACHE THIS AM RESOLVED WITH TYLENOL. EATING WELL. CALLING APPROPRIATLY. USING BEDPAN WHEN TIRED AND BSC WITH CPAP. PT STEADY ON FEET AND ABLE TO TRANSFER WELL WITH 1 ASSIST. Q2 TURNING AT MAX. BOOSTING AND REPOSITIONING PILLOWS AT LEAST EVERY 30 MIN - 1 HOUR WITH BASKET ASSEMBLER ASSISTANCE. MEPILEX IN PLACE FOR COCCYX PRESSURE SORE. SORE AT VERY EARLY STAGES, VERY VIGLIGENT TURNING AND REDISTRIBUTION FOR PRESSURE THIS SHIFT.VITAL SIGNS STABLE. NO ACUTE CHANGES. WILL CONTINUE TO MONITOR AND REPORT OFF.
[2021-01-05 04:25] LABS: Albumin, Blood 3.4 g/dL (3.4-5.0); Anion Gap 5 mmol/L (6-16); Blood Urea Nitrogen 21 mg/dL (8-24); Bun/Creatinine Ratio 57.4 (12.0-20.0); CO2, Blood 35 mmol/L (21-32); Calcium, Blood 9.5 mg/dL (8.5-10.1); Chloride, Blood 95 mmol/L (98-108); Creatinine, Blood 0.37 mg/dL (0.40-1.00); Glomerular Filtration Rate >60 (60-); Glucose, Blood 124 mg/dL (70-99); Phosphorus, Blood 4.6 mg/dL (2.5-4.9); Potassium, Blood 4.3 mmol/L (3.5-5.5); Sodium, Blood 135 mmol/L (136-145)
[2021-01-05 05:27] LABS: PCO2 Arterial 49.8 mmHg (35-45); PO2 Arterial 71.2 mmHg (80-100); pH Blood Arterial 7.48 (7.35-7.45)
--- NOTE | 2021-01-05 05:50 | NUR ---
SHIFT SUMMARY PT A&O X4. VSS. SPO2 > 90% ON AIRVO @ 55L, FIO2 90% OR CPAP. PT WEARING AIRVO FIRST PORTION OF SHIFT, THEN TRANSITIONED TO CPAP MAJORITY OF SHIFT. MONITOR SHOWING SR-ST W/ PVC's, HR 90's-110. NO EVENTS OVER NIGHT.
--- NOTE | 2021-01-05 10:26 | NUR ---
ASSUMED CARE FROM NOC RN, MORNING UPDATE PT HAS MAINTAINED O2 SATURATION ON CPAP AND AIRVO SETTINGS, A NEW MASK WAS GIVEN TO PT TO HELP GET A BETTER SEAL. PT HAS WORKED WITH PHYSICAL THERAPY TODAY USING THE BSC AND DANGLING AT THE BEDSIDE. PT WAS ABLE TO TAKE MORNING MEDICATIONS AND HER DIET WAS ADVANCED TO SOFT REGULAR
--- NOTE | 2021-01-05 18:33 | NUR ---
SHIFT SUMMARY PT HAS REMAINED ON CPAP AND AIRVO DURING THE DAY; SWITCHING BACK AND FORTH NEEDED FOR MEDS AND MEALS. PT WAS TURNED FREQUENTLY THROUGHOUT THE DAY TO HELP RELIEVE PRESSURE ON HER COCCYX IT HAS BECOME RED AND HAS BEGUN TO OPEN; A MEPILEX IS IN PLACE. VS STABLE OTHERWISE. PT WAS ABLE TO VISIT WITH HER THIS AFTERNOON. PT'S DIET WAS ADVANCED TO MECH SOFT WHICH SHE HAS TOLERATED WELL. PT IS RESTING IN BED AT THIS TIME
--- NOTE | 2021-01-06 05:31 | NUR ---
SHIFT SUMMARY PATIENT IS ALERT, ORIENTED, AND COOPERATIVE WITH CARE. 2 PERSON ASSIST WITH TURNING Q2 HOURS. BRIEF CHANGED NEEDED. PATIENT TOOK BREAK FROM CPAP AT BEGINNING OF THE SHIFT FOR ABOUT TWO HOURS ON AIRVO, PATIENT WORE CPAP THE REST OF THE NIGHT WHILE SLEEPING. 02 SATS 88-92% ON CPAP FIO2 80%. PATIENT MEDICATED FOR BACK PAIN PER EMAR. VSS, NO ACUTE CHANGES, CALL LIGHT IN REACH.
--- NOTE | 2021-01-06 11:01 | NUR ---
ASSUMED CARE FROM [facility] RN, MORNING UPDATE PT WAS SLEEPING DURING MORNING REPORT. PT RESTED UNTIL JUST BEFORE 9 AND WAS THEN READY FOR MORNING MEDS AND BREAKFAST. PT REMAINS ON AIRVO AND CPAP TO MAINTAIN SATS ABOVE 88%. PT HAS AN OPEN STAGE 1 PRESSURE SORE FORMING ON THE COCCYX, MEPILEX IS IN PLACE AND PT HAS BEEN REPOSITIONED FREQUENTLY AND WORKED WITH PHYSICAL THERAPY TODAY. PT IS RESTING IN BED AT THIS TIME
--- NOTE | 2021-01-06 18:54 | NUR ---
SHIFT SUMMARY PT HAS BEEN RESTING ON AND OFF TODAY, SHE HAS CONTINUED TO NEED CPAP AND AIRVO ON HIGH SETTINGS. PT WORKED WITH PHYSICAL THERAPY TODAY. PT WAS ABLE TO TAKE MEDICATIONS WHOLE WITH WATER. PT VISITED WITH HER TODAY WELL. PT IS READY TO GO HOME ON HOSPICE SOON SHE IS ABLE AND OXYGEN NEEDS CAN BE MET. PT HAS STAGE 1 SORE ON HER COCCYX AND THE MEPILEX WAS REPLACED TODAY. PT ALSO WAS TURNED FREQUENTLY. PT IS RESTING IN BED AT THIS TIME
--- NOTE | 2021-01-06 22:02 | NUR ---
ASSUMED CARE OF PATIENT AT APPROXIMATELY 1915 FROM JAZLYN Stein RN. PATIENT ALERT AND ORIENTED X4; BEDREST DUE TO HIGH AMOUNTS OF OXYGEN NEEDED WITH MINIMAL MOVEMENT. PATIENT ASSIST WITH TURNS; USES BEDPAN; CAN LIFT HIPS UP. PATIENT DENIES PAIN, DIZZINESS OR NAUSEA. SR/ST ON TELE; OXYGEN SATURATION ABOVE 90% ON CPAP W/ 80% FIO2 OR AIRVO 55LPM 90% FIO2. PIV S/L. PATIENT CURRENLTY RESTING IN BED; CALL LIGHT IN REACH; BED IN LOWEST POSISTION; BED ALARM ON.
--- NOTE | 2021-01-07 06:21 | NUR ---
PATIENT SLEPT ABOUT SEVEN HOURS LAST NIGHT OFF AND ON; ALTERNATED BETWEEN AIRVO AND CPAP ALL NIGHT. VSS.
--- NOTE | 2021-01-07 16:53 | NUR ---
Pal Care visit with pt and . We reviewed her current status and concerns due to growing O2 requirements. Pt verbalizes that "today has not been a good day". Earlier and during my visit pt wanted a break from bipap and within seconds sats dropped into the 70's even with airvo and high flow O2. Circumoral cyanosis noted at that time. at bedside. Luckily, we had already reviewed and discussed in depth, pt's wishes and feelings. Pt stated, "if I am going to , I want to at home". We discussed the challenges of getting pt home and our concern that she would not survive the transport home because EMS could not provide the level of resp support she needed without her being ventilated. Pt does not want to be ventilated. She asked that her call daughter, Nancy, to come. We further discussed waiting for Nancy to come by tomorrow. We discussed in detail transition to comfort care, what that would look like and how it would change her care here. Pt verbalized more concern for her and hector, family. She states, "I am ok with this. I'm just worried about you". appropriately tearful and supportive. Couple left for private time together and I met with again an hour later. I answered his question re: nutrition and hydration. Plan to check in with pt and first thing in the morning. Report on visit given to , RN, distance education faculty liaison. Orienting Palliative Care RN present during our visit also. Pt cont to deny pain but is clearly using all her available reserve for breathing. She remains alert, oriented and appropriate t/o all of our conversations today.
--- NOTE | 2021-01-07 18:04 | NUR ---
SHIFT SUMMARY; ASSUMED CARE AT 0700, A/A/OX4 DURING SIFT. REMAINS ON BIPAP WITH SMALL BREAKS ON AIRVO. 85% FIO2 BIPAP, 90% 55L AIRVO. BED BATH COMPLETE TODAY WITH LINEN CHANGE. PALLATIVE CARE WITH SPOUSE IN AFTERNOON TO DISCUSS POSSIBLE COMFORT CARE. WILL CONTINUE TO MONITOR AND TREAT UNTIL CHANGE OF SHIFT.
--- NOTE | 2021-01-08 05:42 | NUR ---
SHIFT SUMMARY PT RESTED WELL THROUGH NIGHT. ALERT AND ORIENTED - ABLE TO MAKE NEEDS KNOWN. SATS >90% ON 85%FIO2 ON CPAP. TAKES BREAKS FOR MEDS AND SIPS OF WATER FOR MINIMAL AMOUNT OF TIME BEFORE PT DESATS, RAPIDLY. TELE - NSR/SINUS TACH. FREQUENT TURNS TO PREVENT SKIN BREAKDOWN. VSS. CALL LIGHT WITHIN REACH, BED IN LOWEST POSITION. WILL CONTINUE TO MONITOR.
--- NOTE | 2021-01-08 09:13 | NUR ---
[facility] CARE COMFORT CARE - VISIT MADE AT 0800. Kimberlee awake but appears profoundly fatigued and color more dusky than yesterday afternoon. She asked, "have they given up on trying to give me a break from the mask?" We spoke further about what to expect with the mask off and discussed comfort care rx to assist with air hunger that occurs with bipap off. Pt requests we transfer her to comfort care at this time. Time spent listening and supporting pt as she talks about her family and concerns for them. She is very realistic and insightful, wanting to make choices that lessen burdens for her family so that they do not have "to go thru what I have with my parents and my poor did with his". horseback riding instructor, bedside RN updated. Report called to Dr. Nguyen Orders received for comfort care entered. I contacted pt's with update. Jean Paul states two children and one grandchild in transit from [place]. They will be here around noon and be in to visit Kimberlee as soon as they can get here. RN to contact screeners to notify of change to comfort care status and four visitors allowed when they arrive. Returned to pt's room to discuss plans for care, changes in orders, her wishes to be followed. POC for medication at smallest dose and trial without bipap discussed with her nurse as well as review of all comfort care orders. Pt wants to have the bipap mask put back on if she starts to fail rapidly, at least until her family arrives in a few hours. She is aware if she wants respiratory support d/c'd at any time that we will respect her wishes and do our best to keep her comfortable. Pt cont to deny moderate to severe pain. She reports some bodily ache from being in bed for too long. I will return for s/s assessment and support after family arrives today.
--- NOTE | 2021-01-08 14:00 | NUR ---
PAL CARE COMFORT CARE VISIT - Spoke with pt's on phone and obtained permission for two children and two grandchilren to visit later today with him per tractor mechanic apprentice. Spoke with pt to ok this with her also. She is ok with visitors. She requests that we place a martinez cath so she is not trying to get up to the BR with her visitors present. Order already in place per comfort care order set. Spent some time just sitting with pt while she rested with eyes closed but still talking. Notified pt's RN of request for martinez. RN to place cath before visitors are expected to arrive in an hour or two.
--- NOTE | 2021-01-08 18:11 | NUR ---
SHIFT SUMMARY; CHANGED TO COMFORT CARE TODAY. MEDICATED NEEDED FOR PAIN AND AIR HUNGER, REMAINS ON BIPAP FOR COMFORT. FAMILY AT BEDSIDE. WILL CONTINUE TO MONITOR AND TREAT UNTIL CHANGE OF SHIFT.
--- NOTE | 2021-01-08 21:20 | NUR ---
ASSUMED CARE PT IS ALERT AND ORIENTED. SATS ARE 91% WITH BIPAP AND VITALS ARE STABLE. THERE ARE NO FAMILY MEMBERS PRESENT AT THE TIME. PT DENIES PAIN.
--- NOTE | 2021-01-09 06:40 | NUR ---
SHIFT SUMMARY PT IS ALERT AND ORIENTED IN ROOM. NO ACUTE CHANGES. VITAL ARE STABLE. THERE WAS A TELE READING OF 9 BEAT RUN OF V-TACH. MEDICATED FOR PAIN OF 10/10. BIPAP HAS BEEN IN PLACE THROUGHOUT THE NIGHT WITH SATS OF >90, WITH THE USE OF AIRVO FOR BREAKS. CORTÉS CATHETER IS IN PLACE AND DRAINING.
--- NOTE | 2021-01-09 12:43 | NUR ---
PAL CARE COMFORT CARE VISIT - Kimberlee with bipap mask on and Jean Paul at the bedside. When I asked if she had had a good visit with her family she said she nodded yes and said it was a "loud" visit with a smile. She asked if she could try the airvo for a while and states she just received medication for air hunger "a little bit ago" and does not feel the need to be premedicated for time off of the bipap. I returned an hour or so later and pt requested that we put mask back on. Her daughter was at bedside now. Pt denies pain. She is requesting to cont PO meds at times and to have her VS checked sometimes. Case conferenced with RN after my second visit to review plan of care and s/s management strategies. Pal care to remain available to pt, family and staff for support and s/s management. Pt's color remains dusky. She is severly dyspnic with conversation with or without bipap. cont to ask about PO intake and he is educated on pt's lack of appetite and energy for eating.
--- NOTE | 2021-01-09 14:08 | NUR ---
Spiritual care visit conducted. Patient tells me about being on comfort care and how she has peace about that and peace about dying. She shares about her deepest concern being for her family and especially her because he will be so lonely. She explains about their deep friendship, love and respect. She states that she is doing much better about the dying process than Jean Paul is. She tells me she looks forward to the end of the labor that her physical body is working so hard at. I reinforce patient's helpful outlook and provide therapeutic listening and prayer. Patient reponds well and shows signs of being comforted. She voices appreciation for the time and the prayer.
--- NOTE | 2021-01-09 15:12 | NUR ---
PT PAIN PT REPORTS INREASE IN AIR HUNGER AND DISCOMFORT. REQUESTS HIGHER DOSE OF PAIN MEDICATION, SEE EMAR. MEDICATION PROVIDED AND PT REPOSITIONED.
--- NOTE | 2021-01-09 18:13 | NUR ---
SHIFT SUMMARY PT ALERT AND ORIENTED X 4. COMFORT CARE ORDERS IN PLACE. PT REQUESTING VS TAKEN AND REGULAR SCHEDULED MEDICATIONS. MEDICATED FOR PAIN AND ANXIETY, SEE COMFORT CARE ASSESSMENT/EMAR. PT WORE CPAP T/O SHIFT AND ALTERNATED WITH AIRVO. PT REFUSED REPOSITIONING AT TIMES. ABLE TO CALL WHEN REQUESTING TO BE REPOSITIONED. CORTÉS PATENT AND DRAINING TO GRAVITY. WILL CONTINUE TO MONITOR UNTIL REPORT GIVEN TO DAYSHIFT RN.
--- NOTE | 2021-01-09 21:06 | NUR ---
PATIENT IS ALERT AND ORIENTED. HAS SEVERAL FAMILY MEMEBERS IN THE ROOM WITH HER. PATIENT REQUESTED HER VITAL SIGNS BE TAKEN. PATIENT CURRENTLY ON AIRVO. PATIENT DENIES ANY PAIN OR DISCOMFORT. OFFERED FLUIDS, REPOSITIONING. PATIENT REQUESTED HER NORMAL NIGHT TIME MEDICATIONS.
--- NOTE | 2021-01-10 04:37 | NUR ---
PATIENT IS ALERT AND ORIENTED, FAMILY IN THE ROOM UNTIL ALMOST MIDNIGHT. PATIENT REQUESTED VITALS BE DONE AT THE BEGINNING OF SHIFT AND THAT SHE RECIEVE HER NORMALLY SCHEDULED MEDICATIONS. PATIENT ON CPAP MOST THE NIGHT WHILE SLEEPING. PATIENT DENIES ANY PAIN OR DISCOMFORT. REPOSITIONED Q2 HOURS. CALL LIGHT IN REACH. WILL CONTINUE TO MONITOR.
--- NOTE | 2021-01-10 04:42 | NUR ---
SHIFT SUMMARY RECIEVED REPORT FROM JOSLYN SEE. PATIENT TO ROOM VIA STRETCHER @2200, TRANSFERED INDEPENDENTLY TO THE BED WITH HIS CANE. PATIENT IS ALERT AND ORIENTED X4. INDEPENDENT IN THE ROOM. PATIENT A.FIB 90s-110 WHEN HE ARRIVED TO THE UNIT @2200, PATIENT CONVERTED TO NORMAL SINUS RHYTHM AT @2237. CARDIZEM gtt STOPPED @0022 PATIENT REMAINED NSR @60s-70s. 02 SATS >90% ON RA, PATIENT USES 2L 02 AT NIGHT AT BASELINE. VSS, NO ACUTE CHANGES. CALL LIGHT IN REACH.
--- NOTE | 2021-01-10 18:13 | NUR ---
SHIFT SUMMARY PT ALERT AND ORIENTED X 4. PT REFUSING REPOSITIONING AND BATHING AT THIS TIME D/T FAMILY MEMBERS IN ROOM T/O SHIFT. PT WORE BIPAP/AIRVO T/O SHIFT. PROVIDED SCHEDULED MEDICATIONS PER PT'S REQUEST AND COMFORT CARE MEDICATIONS. SEE EMAR. PT HAS INCREASING DYSPNEA THIS EVENING. UNABLE TO TOLERATE AIRVO AT THIS TIME. BECOMES CYANOTIC AND HAS PAUSES IN RESPIRATIONS. PSYCHIATRIC SECURITY NURSE CALLED FAMILY TO INFORM OF DECLINE IN RESPIRATORY STATUS. PT RECEIVED MEDICATION PER EMAR AND REPORTS RELIEF. FAMILY CURRENLTY AT BEDSIDE WITH PT. WILL CONTINUE TO MONITOR UNTIL REPORT GIVEN TO NIGHTSHIFT RN.
--- NOTE | 2021-01-10 21:08 | NUR ---
CARE ASSUMPTION UPON ASSUMING CARE THE PT'S FAMILY HAD ALREADY LEFT AND THE PT WAS RECIEVING A BREATHING TX PER R/T. WHEN ASKED IF PT FELT SOB SHE SAID YES AND WANTED ROXANOL. PT WAS GIVEN 10 MG ROXANOL AND IS NOW DENYING ANY SOB OR ANXIETY. PT REFUSED HER 2100 MEDICATIONS. WCTM.
--- NOTE | 2021-01-11 04:29 | NUR ---
AERIAL ADVERTISER SUMMARY THE PT HAS SLEPT ON AND OFF DURING THIS SHIFT BUT HAS HAS C/O CHEST TIGHTNESS AND DYSPNEA AT TIMES WHEN AWAKE BUT HAS IMPROVED W ROXANOL. PT DID REQUIRE ONE ADDITIONAL DOSE OF ATIVAN WITH THE ROXANOL SHE BECAME VERY WORKED UP AT ONE POINT. THE PT HAS HAD FAMILY AT HER SIDE FOR MOST OF THE SHIFT AND HAS TALKED WITH EACH OF THEM WHEN THEY ARE HERE. THE PT HAS A RR IN THE 30'S WHEN AWAKE AND AROUND 10 WHEN RESTING. THE PT HAS BEEN ABLE TO SPEAK CLEARLY BUT DOES APPEAR IMMINENT AT THIS TIME. PT IS SLEEPING COMFORTABLY SON JUST LEFT. WCTM.
--- NOTE | 2021-01-11 13:00 | NUR ---
FINAL DISCHARGE FAMILY AT BEDSIDE WITH PATIENT DURING PASSING. VERIFIED TIME OF WITH JOSLYN WRIGHT. FAMILY PROVIDED WITH COMFORT AND PRIVACY. CONFIRMED HOME WITH . CHARGE, RN TO CONTACT. PT BELONGINGS SENT HOME WITH .
--- NOTE | 2021-01-11 15:34 | NUR ---
FINAL DISCHARGE PT TRASPORTED OUT OF HOSPITAL BY [facility] WITH [facility] OF THE [facility] REP THO Joe WITH PT'S FACE SHEET. PT HAD ICE TO EYES FOR POSSIBLE ORGAN DONATION, FAMILY STILL DECIDING IF THEY WOULD LIKE TO HAVE HER BE AN ORGAN DONOR. HOME REP SIGNED DOCUMENTS, IN PT'S CHART.
== END 2021-01-11 15:17 | DRG 291 ==
LOC: ER 16:39 → PCU 19:15 → ERHOLD 19:15 → EDBEDREQ 19:24 → PCU 23:46
PROVIDERS: Emergency Medicine; Internal Medicine; ADMIT Internal Medicine
PROC: 5A09457 Assistance with Respiratory Ventilation, 24-96 Consecutive Hours, Continuous Positive Airway Pressure (ICD-10-PCS; principal; 2020-12-22)
PROC: 3E02340 Introduction of Influenza Vaccine into Muscle, Percutaneous Approach (ICD-10-PCS; 2020-12-23)
DX: I11.0 Hypertensive heart disease with heart failure (principal); I50.21 Acute systolic (congestive) heart failure; J96.22 Acute and chronic respiratory failure with hypercapnia; J96.21 Acute and chronic respiratory failure with hypoxia; E43 Unspecified severe protein-calorie malnutrition; R64 Cachexia; E44.1 Mild protein-calorie malnutrition; I27.20 Pulmonary hypertension, unspecified; Z51.5 Encounter for palliative care; Z20.822 Contact with and (suspected) exposure to COVID-19; J43.9 Emphysema, unspecified; E03.9 Hypothyroidism, unspecified; F32.9 Major depressive disorder, single episode, unspecified; G47.00 Insomnia, unspecified; E78.5 Hyperlipidemia, unspecified; I42.0 Dilated cardiomyopathy; Z99.81 Dependence on supplemental oxygen; K21.9 Gastro-esophageal reflux disease without esophagitis; Z87.891 Personal history of nicotine dependence; Z68.20 Body mass index [BMI] 20.0-20.9, adult; Z66 Do not resuscitate; Z23 Encounter for immunization
CPT/HCPCS: 0241U; 36415; 36600; 71045; 71260; 80048; 80053; 80069; 81003; 82550; 82803; 83880; 84132; 84443; 84484; 85025; 93005; 93010; 93306; 93308; 93321; 94003; 94640; 94660; 94667; 94760; 94762; 96365; 96375; 97110; 97162; 97166; 97530; 99285-25; A9270; J0456; J0696; J1650; J1940; J2060; J2405; J2920; J2930; J7050; Q2038; Q9967